=== PATIENT | female | born 1995 | race Caucasian/White ===

== ENCOUNTER → 2016-06-02 | Outpatient (REF) ==
[~2016-06-02] MED LIST: CLARITIN 1010 MG/TAB PO; COUMADIN 5MG5 MG/TAB PO; FLEXERIL 1010 MG/TAB PO; FLONASEALLERGY NS; JANTOVEN4 MG; SKYLA13.5 MG IY; TRINESSA 281 TAB PO
== END ==
LOC: WSOH 09:15
DX: Z01.83 Encounter for blood typing (principal)

== ENCOUNTER 2016-06-20 15:33 | Emergency (ER) | payer BC ==
[~2016-06-20] VITALS: Ht 177.8 cm; Wt 100.0 kg
[~2016-06-20 15:33] MED LIST changes: -COUMADIN 5MG5 MG/TAB PO; -JANTOVEN4 MG; -SKYLA13.5 MG IY
[2016-06-20 15:35] VITALS: TEMP 99.4
[2016-06-20] MEDS ORDERED: COUMADIN 5MG5 MG/TAB PO (15:38)
[2016-06-20] MEDS ORDERED: JANTOVEN4 MG (15:39)
[2016-06-20] MEDS ORDERED: SKYLA13.5 MG IY (16:21)
[2016-06-20 16:28] LABS: BASO % 0.3 % (0.0-2.0); EOS # 0.1 (0.0-0.7); EOS % 1.6 % (0-4.0); GRAN # 4.5 (1.4-6.5); GRAN % 51.7 % (42.2-75.2); HEMATOCRIT 34.6 % (35.0-45.0); HEMOGLOBIN 10.8 g/dl (12.0-15.0); LYMPH # 3.2 (1.2-3.4); LYMPH % 36.8 % (20.0-51.0); MEAN CELL VOLUME 78 fl (80.0-95.0); MEAN CORPUSCULAR HEMOGLOBIN 24 pg (26.0-32.0); MEAN CORPUSCULAR HGB CONC 31 g/dl (33.0-37.0); MEAN PLATELET VOLUME 10.8 fl (7.4-10.4); MONO # 0.8 (0.1-0.6); MONO % 9.4 % (1.7-9.3); PLATELET COUNT 308 K/mm3 (130-400); RED BLOOD COUNT 4.45 M/mm3 (4.10-5.30); REDCELL DISTRIBUTION WIDTH-CV 14.9 % (11.5-14.5); WHITE BLOOD COUNT 8.7 K/mm3 (4.8-10.8)
[2016-06-20 16:33] LABS: INR 2.8 (0.8-3.0); PROTHROMBIN TIME 32.3 SECONDS (9.7-12.8)
[2016-06-20 16:42] LABS: ADJUSTED CALCIUM 9.5 mg/dL (8.4-10.2); ALANINE AMINOTRANSFERASE 48 U/L (9-52); ALBUMIN 3.9 gm/dL (3.5-5.0); ALKALINE PHOSPHATASE 103 U/L (50-136); ANION GAP 10 mmol/L (7-16); BILIRUBIN,TOTAL 0.5 mg/dL (0.0-1.0); BLOOD UREA NITROGEN 10 mg/dL (7-17); C-REACTIVE PROTEIN 0.5 mg/dL (0.0-0.9); CALCIUM 9.4 mg/dL (8.4-10.2); CARBON DIOXIDE 28 mmol/L (22-30); CHLORIDE 102 mmol/L (98-107); CREATININE, serum 0.62 mg/dL (0.52-1.25); GLUCOSE 85 mg/dL (74-106); POTASSIUM 3.9 mmol/L (3.4-5.0); SODIUM 141 mmol/L (137-145); TOTAL PROTEIN 7.3 gm/dL (6.4-8.2)
[2016-06-20 16:56] LABS: TROPONIN-I < 0.012 ng/mL (0.000-0.034)
[2016-06-20 17:27] VITALS: BP 113/65; PULSE 64
== END 2016-06-20 17:17 | disposition home or self-care (01) ==
LOC: COL.ER 15:33
PROVIDERS: Family Medicine
DX: R00.2 Palpitations (principal); D50.9 Iron deficiency anemia, unspecified; Z79.01 Long term (current) use of anticoagulants; Z86.711 Personal history of pulmonary embolism

== ENCOUNTER 2019-06-27 18:57 | Emergency (ER) | payer BC ==
[~2019-06-27] VITALS: Ht 180.3 cm; Wt 113.6 kg
[~2019-06-27 18:57] MED LIST changes: +COUMADIN 5MG5 MG/TAB PO; +JANTOVEN4 MG; +SKYLA13.5 MG IY
[2019-06-27 19:04] VITALS: TEMP 97.9
[2019-06-27 20:23] LABS: BASO # 0.1 (0.0-0.2); BASO % 0.5 % (0.0-2.0); EOS # 0.2 (0.0-0.7); EOS % 1.7 % (0-4.0); GRAN # 7.7 (1.4-6.5); GRAN % 59.1 % (42.2-75.2); HEMATOCRIT 46.2 % (37.0-47.0); HEMOGLOBIN 14.8 g/dl (12.5-16.0); LYMPH % 30.4 % (20.0-51.0); MEAN CELL VOLUME 91 fl (80.0-100.0); MEAN CORPUSCULAR HEMOGLOBIN 29 pg (27.0-31.0); MEAN CORPUSCULAR HGB CONC 32 g/dl (33.0-37.0); MEAN PLATELET VOLUME 10.5 fl (7.4-10.4); MONO % 7.9 % (1.7-9.3); PLATELET COUNT 293 K/mm3 (130-400); RED BLOOD COUNT 5.06 M/mm3 (4.10-5.30); REDCELL DISTRIBUTION WIDTH-CV 12.5 % (11.5-14.5)
[2019-06-27 20:31] LABS: ALANINE AMINOTRANSFERASE 19 U/L (4-34); ALBUMIN 4.3 gm/dL (3.5-5.0); ALKALINE PHOSPHATASE 99 U/L (50-136); ANION GAP 9 mmol/L (7-16); AST,SGOT 20 U/L (15-37); BILIRUBIN,TOTAL 0.5 mg/dL (0.0-1.0); BLOOD UREA NITROGEN 13 mg/dL (7-17); CALCIUM 9.1 mg/dL (8.4-10.2); CARBON DIOXIDE 26 mmol/L (22-30); CHLORIDE 104 mmol/L (98-107); CREATININE, serum 0.64 (0.52-1.25); GLUCOSE 93 mg/dL (74-106); POTASSIUM 3.9 mmol/L (3.4-5.0); SODIUM 140 mmol/L (137-145); TOTAL PROTEIN 7.3 gm/dL (6.4-8.2)
[2019-06-27] MEDS ORDERED: ASPIRIN 81M81 MG/TA2 PO (20:41)
[2019-06-27] MEDS ORDERED: TYLENOL 8 HR PO (20:41)
[2019-06-27 20:46] LABS: TROPONIN-I < 0.012 ng/mL (0.000-0.035)
[2019-06-27 22:21] VITALS: BP 107/68; PULSE 64
== END 2019-06-27 22:22 | disposition home or self-care (01) ==
LOC: COL.ER 18:57
PROVIDERS: Emergency Medicine
DX: R07.81 Pleurodynia (principal); J45.909 Unspecified asthma, uncomplicated; Z79.82 Long term (current) use of aspirin; Z88.8 Allergy status to other drugs, medicaments and biological substances
CPT/HCPCS: J1885; J7030

== ENCOUNTER → 2022-02-05 | Outpatient (CLI) | payer OTHER ==
[~2022-02-05] MED LIST changes: +ASPIRIN 81M81 MG/TA2 PO; +TYLENOL 8 HR PO
== END ==
LOC: COL.RAD 13:39
DX: J32.9 Chronic sinusitis, unspecified (principal)